=== PATIENT | male | born 1940 | race Caucasian/White ===

== ENCOUNTER → 2017-01-25 | Outpatient (CLI) | payer MEDICARE, BC ==
[~2017-01-25] MED LIST: ALLO300T PO; ASPI-496 PO; CARV6.252 PO; COLC0.6T37 PO; DUTA0.5C PO; PANT40TA3 PO; POTA10TA11 PO; PRAV40TA2 PO; TAMS0.4C2 PO; TRAM50TA2 PO; VALS1TAB30 PO
== END | disposition home or self-care (01) ==
LOC: RAD 12:26
PROVIDERS: ATTEND Neurological Surgery
DX: M41.86 Other forms of scoliosis, lumbar region (principal); M47.896 Other spondylosis, lumbar region; Z98.1 Arthrodesis status
CPT/HCPCS: 72082